=== PATIENT | male | born 1985 | race Hispanic/Latino ===

== ENCOUNTER 2019-12-31 07:23 | Day surgery (SDC) | payer BC ==
[~2019-12-31 07:23] MED LIST: ceFAZolin/STERILE WATER 2 GM/20 ML SYRINGE IV NR
[2019-12-31] MEDS ORDERED: ONDANSETRON 4 MG/2 ML INJ ONE (07:56)
[2019-12-31] MEDS ORDERED: LIDOCAINE MPF (2%) 20 MG/1 ML VIAL 5 ML ONE (07:56)
[2019-12-31] MEDS ORDERED: propofoL 200 MG/20 ML VIAL IV ONE (07:56)
[2019-12-31] MEDS ORDERED: fentaNYL 100 MCG/2 ML INJ ONE (07:57)
[2019-12-31] MEDS ORDERED: LACTATED RINGERS 1,000 ML ONE (08:19)
[2019-12-31] MEDS ORDERED: MIDAZOLAM 2 MG/2 ML INJ ONE ×2 (08:19→08:49)
--- NOTE | 2019-12-31 08:26 | Anesthesia Day of Surgery ---
Anesthesia Day of Surgery - Day of Surgery Patient Examined: Yes Patient H&P Reviewed: Yes Patient is NPO: Yes
[2019-12-31] MEDS ORDERED: HYDROmorphone 1 MG/1 ML INJ IV PRN ×2 (08:27)
[2019-12-31] MEDS ORDERED: ONDANSETRON 4 MG/2 ML INJ IV PRN (08:27)
--- NOTE | 2019-12-31 08:27 | Anesthesia Consultation ---
Anesthesia Consult and Med Hx Date of service: 12/31/19 - Airway Anesthetic Teeth Evaluation: Chipped ROM Head & Neck: Adequate Mental/Hyoid Distance: Adequate Mallampati Class: Class III Intubation Access Assessment: Probably Good - Pre-Operative Health Status ASA Pre-Surgery Classification: ASA2 Proposed Anesthetic Plan: General - Pulmonary Hx Smoking: No Hx Asthma: Yes (PRN INHALER) Hx Sleep Apnea: No (MARK PRE SCREEN HIGH RISK) - Cardiovascular System Hx Hypertension: Yes - Central Nervous System Hx Psychiatric Problems: Yes (Depression) - Gastrointestinal Hx Gastroesophageal Reflux Disease: Yes (Dietary) - Endocrine Hx Renal Disease: Yes (Stones) - Other Systems Hx Cancer: No Hx Obesity: Yes
[2019-12-31] MEDS ORDERED: dexAMETHasone 20 MG/5 ML VIAL ONE (08:59)
[2019-12-31] MEDS ORDERED: MIDAZOLAM 2 MG/2 ML INJ IV NR (09:00)
[2019-12-31] MEDS ORDERED: LACTATED RINGERS 1,000 ML IV SCH (09:00)
[2019-12-31] MEDS ORDERED: WATER FOR IRRIG STERILE 1,500 ML BOTTLE IR ONE (09:30)
[2019-12-31] MEDS ORDERED: WATER FOR IRRIG STERILE 2000 ML IR ONE (09:30)
--- NOTE | 2019-12-31 09:57 | Short Stay Summary ---
Short Stay Documentation Date of service: 12/31/19 - History H&P: obtained from office - Allergies and Medications Current Medications: Allergies Sulfa (Sulfonamide Antibiotics) Allergy (Verified 12/26/19 10:59) Itching Home Medications Medication Instructions Recorded Confirmed Last Taken Type Albuterol Sulfate [Proventil Hfa] 2 puff IH PRN PRN 12/26/19 12/26/19 Unknown History HYDROmorphone [Dilaudid] 2 mg PO Q6HR PRN 12/26/19 12/26/19 Unknown History Ibuprofen [Motrin] 800 mg PO Q8HR PRN 12/26/19 12/26/19 Unknown History Ondansetron HCl [Zofran] 4 mg PO PRN PRN 12/26/19 12/26/19 Unknown History Tamsulosin [Flomax] 0.4 mg PO QDAY 12/26/19 12/26/19 Unknown History traMADoL [Ultram] 50 mg PO Q6HR PRN 12/26/19 12/26/19 Unknown History Active Medications Cefazolin Sodium (Ancef/Sterile Water 2 Gm/20 Ml) 2 gm IV PREOP NR Stop: 12/31/19 20:00 Hydromorphone HCl (Dilaudid) 0.25 mg IV Q10MIN PRN PRN Reason: Pain, Moderate (4-6) Hydromorphone HCl (Dilaudid) 0.5 mg IV Q10MIN PRN PRN Reason: Pain , Severe (7-10) Lactated Ringer's (Lactated Ringers) 1,000 mls @ 125 mls/hr IV DIRECT ALICIA Last Admin: 12/31/19 08:35 Dose: 125 mls/hr Documented by: Midazolam HCl (Versed) 2 mg IV PREOP NR Stop: 12/31/19 23:59 Last Admin: 12/31/19 08:36 Dose: 2 mg Documented by: Ondansetron HCl (Zofran) 4 mg IV ONCE PRN PRN Reason: Nausea And Vomiting - Brief post op/procedure progress note Date of procedure: 12/31/19 Pre-op diagnosis: left ureteral stone Post-op diagnosis: same Procedure: cysto, rpg, left ureteroscopy stent with external string, basket stone extraction Anesthesia: GETA Surgeon: PARUL ROLADN Estimated blood loss: minimal Condition: stable - Hospital course Hospital course: ernesto trinh ultram, norco on chart - Disposition Condition at discharge: Stable Disposition: DC-01 TO HOME OR SELFCARE Short Stay Discharge Plan Follow up with: PRIMARY CARE, [Primary Care Provider] - 7 Days
[2019-12-31 10:22] VITALS: BP 152/90
[2019-12-31] MEDS ORDERED: HYDROmorphone 2 MG TAB PO PRN (10:30)
--- NOTE | 2019-12-31 11:06 | Post Anesthesia Evaluation ---
- Post Anesthesia Evaluation Patient Participated: Yes Airway Patent: Yes Stable Respiratory Function: Yes Nausea/Vomiting: No Temp > 96.8F: Yes Pain Manageable: Yes Adequeate Hydration: Yes Anesthesia Complications: No Block Receding Appropriately: Not Applicable Patient on Ventilator: No
--- NOTE | 2019-12-31 11:31 | Operative Report ---
PREOPERATIVE DIAGNOSIS: Left distal ureteral stone. POSTOPERATIVE DIAGNOSIS: Left distal ureteral stone. PROCEDURE: Cystoscopy, bilateral retrograde pyelograms, left ureteroscopy, basket stone extraction, double-J stent (6-Bolivian 28 cm with an external string). SURGEON: Srini Merchant MD ANESTHESIA: General. ESTIMATED BLOOD LOSS: Minimal. FLUIDS: Crystalloid. COMPLICATIONS: None. INDICATIONS: This patient is a 34-year-old male seen in the office with left 3-4 mm mid ureteral stone on CT. He was given a trial of conservative therapy, continued to have persistent pain, was seen in the ER at another institution. Repeat CT of the stone had moved more distal. He presents now for surgical intervention. Risks, benefits and complications were explained. DESCRIPTION OF PROCEDURE: The patient was taken to the operative suite, placed in a supine position. After adequate general anesthesia, placed in a dorsal lithotomy position, prepped and draped in a sterile fashion. Cardenas-cystourethroscopy was performed with a 22-Bolivian Storz cystoscope. No urethral abnormalities. His prostate was nonobstructing. His bladder, no tumors or stones were noted. On the telephone order dispatcher film, you could appreciate a distal 4-5 mm stone. Bilateral retrograde pyelograms were obtained with an 8-Bolivian Walton catheter and 8 mL of contrast. No filling defects or obstruction on the right. Left side could see a distal filling defect. Two 0.035 Glidewires were placed. Rigid ureteroscopy was performed. A yellow distal stone could be appreciated. It was engaged with a 3-Bolivian Elvira basket and extracted and will be given to the patient. Ureteroscopy to the mid ureter, no other stones could be appreciated. A 6-Bolivian 28 cm double-J stent with an external string was left indwelling. Rectal exam was benign. He was extubated and taken to the recovery room. He will go home on Cipro, Zofran, Ultram and Dilaudid. JOB# [id number] [facility]
--- NOTE | 2019-12-31 14:18 | Fluoroscopy Report ---
FL retrograde urography INDICATION / CLINICAL INFORMATION: LT URETERAL STONE. COMPARISON: None available. FINDINGS: Spot intraoperative images were used for surgical guidance during bilateral retrograde pyelogram, lef t ureteral stone extraction, and placement of left ureteral stent. Fluoroscopy time: 22 seconds. Fluoroscopic images: 10. Signer Name: Filipe Moseley MD Signed: 12/31/2019 2:14 PM Workstation Name: [id number]
== END 2019-12-31 07:24 | disposition home or self-care (01) ==
LOC: OR 07:23
PROVIDERS: ATTEND Urology
DX: N20.1 Calculus of ureter (principal); G43.909 Migraine, unspecified, not intractable, without status migrainosus; E78.00 Pure hypercholesterolemia, unspecified; I10 Essential (primary) hypertension; J45.909 Unspecified asthma, uncomplicated; F32.9 Major depressive disorder, single episode, unspecified; K21.9 Gastro-esophageal reflux disease without esophagitis; E66.9 Obesity, unspecified; Z88.2 Allergy status to sulfonamides; Z79.899 Other long term (current) drug therapy; Z98.890 Other specified postprocedural states; Z68.35 Body mass index [BMI] 35.0-35.9, adult
CPT/HCPCS: 52332; 52352; 74420; A4217; C1758; C1769; C2617; J0690; J1100; J2250; J2405; J2704; J3010; J7120; Q9967